=== PATIENT | female | born 1990 | race African-American/Black ===

== ENCOUNTER 2020-03-15 05:37 | Emergency (ER) | payer SELFPAY ==
[~2020-03-15] VITALS: Ht 170.2 cm; Wt 68.2 kg
[~2020-03-15 05:37] MED LIST: AZIT500T10 PO; SULF1TAB24 PO
[2020-03-15 05:39] VITALS: BP 150/120
== END 2020-03-15 06:09 | disposition home or self-care (01) ==
LOC: ED 05:58
DX: K01.1 Impacted teeth (principal); H92.09 Otalgia, unspecified ear; Z88.9 Allergy status to unspecified drugs, medicaments and biological substances
CPT/HCPCS: 99283